=== PATIENT | male | born 1950 | race Caucasian/White ===

== ENCOUNTER 2019-10-19 16:30 | Emergency (ER) | payer MEDICARE ==
[~2019-10-19] VITALS: Ht 160 cm; Wt 90.5 kg
[~2019-10-19 16:30] MED LIST: ALLO100T PO; ASPI-57 PO; BACDS PO; CEPH-357 PO; ERGO400C PO; GARL200T PO; GINKGO PO; GLUC-133 PO; KRILL OIL PO; MULT-785 PO; NORCO10T PO; SIMV-42 PO; [UNRECOGNIZED DRUG - OTHER] PO
[2019-10-19 16:46] VITALS: BP 139/87
[2019-10-19] MEDS ORDERED: ondansetron 4mg rapidly disintigrating tab PO ONE (17:00)
[2019-10-19] MEDS ORDERED: HYDROcodone/acetaminophen 10/325mg tab PO ONE (17:00)
[2019-10-19] MEDS ORDERED: TETanus/Pertussis (Acell)/Diphther VAC/PF (Tdap-Adult) 0.5ml syringe IMVAC ONE (17:05)
[2019-10-19] MEDS ORDERED: bacitracin 15gm ointment TP ONE (17:05)
[2019-10-19] MEDS ORDERED: LIDOcaine 1% W/epiNEPHrine 1:200,000 10ml vial IJ ONE (17:05)
[2019-10-19] MEDS ORDERED: acetaminophen 325mg tablet PO ONE (17:10)
[2019-10-19] MEDS ORDERED: ceFAZolin 1gm IM kit IM ONE (17:20)
[2019-10-19] MEDS ORDERED: CEPH250T PO (18:16)
== END 2019-10-19 18:48 | disposition home or self-care (01) ==
LOC: ER 16:31
DX: S61.012A Laceration without foreign body of left thumb without damage to nail, initial encounter (principal); S62.522A Displaced fracture of distal phalanx of left thumb, initial encounter for closed fracture; Z98.890 Other specified postprocedural states; Z88.2 Allergy status to sulfonamides; Z79.82 Long term (current) use of aspirin; Z79.899 Other long term (current) drug therapy; X58.XXXA Exposure to other specified factors, initial encounter; Y93.89 Activity, other specified; Y92.89 Other specified places as the place of occurrence of the external cause; Y99.8 Other external cause status
CPT/HCPCS: 12001; 73140; 90471; 90715; 96374; 99284; J0690

== ENCOUNTER 2020-01-10 09:32 | Emergency (ER) | payer MEDICARE ==
[~2020-01-10] VITALS: Ht 170.2 cm; Wt 86.6 kg
--- NOTE | 2020-01-10 11:14 | NUR ---
DISCUSSED PT'S PAIN W/ PA ABERNATHY, SEEKING TORADOL; NO NEW ORDER RECEIVED.
[2020-01-10] MEDS ORDERED: HYDROcodone/acetaminophen 10/325mg tab PO ONE (11:25)
[2020-01-10 11:31] VITALS: BP 113/74
[2020-01-10] MEDS ORDERED: CEPH250T PO (11:43)
[2020-01-10] MEDS ORDERED: DOXY100C76 PO (11:43)
[2020-01-10] MEDS ORDERED: IBUP-1984 PO (11:43)
[2020-01-11] MEDS ORDERED: MELO-102 PO (14:55)
[2020-01-11] MEDS ORDERED: PSYL0.4C2 PO (14:59)
[2020-01-11] MEDS ORDERED: GLUC-150 PO (14:59)
[2020-01-11] MEDS ORDERED: ASPI-842 PO (14:59)
[2020-01-11] MEDS ORDERED: TUMERIC PO (14:59)
== END 2020-01-10 11:54 | disposition home or self-care (01) ==
LOC: ER 09:33
DX: L03.115 Cellulitis of right lower limb (principal); G89.29 Other chronic pain; M10.9 Gout, unspecified; Z86.73 Personal history of transient ischemic attack (TIA), and cerebral infarction without residual deficits; Z88.0 Allergy status to penicillin; Z79.82 Long term (current) use of aspirin; Z79.2 Long term (current) use of antibiotics; Z79.899 Other long term (current) drug therapy
CPT/HCPCS: 73564; 99283

== ENCOUNTER 2020-01-11 11:17 | Emergency (ER) | payer MEDICARE ==
[~2020-01-11] VITALS: Ht 160 cm; Wt 88.2 kg
[~2020-01-11 11:17] MED LIST changes: +CEPH250T PO; +DOXY100C76 PO; +IBUP-1984 PO
[2020-01-11 11:29] VITALS: BP 122/76
[2020-01-11] MEDS ORDERED: MELO-102 PO (14:55)
[2020-01-11] MEDS ORDERED: TUMERIC PO (14:59)
[2020-01-11] MEDS ORDERED: ASPI-842 PO (14:59)
[2020-01-11] MEDS ORDERED: GLUC-150 PO (14:59)
[2020-01-11] MEDS ORDERED: PSYL0.4C2 PO (14:59)
== END 2020-01-11 11:40 | disposition home or self-care (01) ==
LOC: ER 11:18
DX: L03.115 Cellulitis of right lower limb (principal); G89.29 Other chronic pain; M10.9 Gout, unspecified; Z86.73 Personal history of transient ischemic attack (TIA), and cerebral infarction without residual deficits; Z88.2 Allergy status to sulfonamides; Z79.82 Long term (current) use of aspirin; Z79.2 Long term (current) use of antibiotics; Z79.899 Other long term (current) drug therapy
CPT/HCPCS: 99281

== ENCOUNTER 2020-01-18 06:00 | Day surgery (SDC) | payer MEDICARE ==
[2020-01-11 15:18] LABS: BASOPHILS # (AUTO) 0.1 X10'3 (0-0.2); BASOPHILS % (AUTO) 0.7 % (0-1); EOSINOPHILS # (AUTO) 0.2 X10'3 (0-0.9); EOSINOPHILS % (AUTO) 1.7 % (0-6); LYMPHOCYTES # (AUTO) 0.9 X10'3 (1.1-4.8); LYMPHOCYTES % (AUTO) 9.5 % (21-51); MEAN CORPUSCULAR HEMOGLOBIN 31.6 PG (27.0-31.0); MEAN CORPUSCULAR HGB CONC 33.4 g/dL (33.0-36.5); MEAN CORPUSCULAR VOLUME 94.6 FL (78-98); MEAN PLATELET VOLUME 7.8 FL (7.4-10.4); MONOCYTES # (AUTO) 0.8 X10'3 (0-0.9); MONOCYTES % (AUTO) 8.7 % (2-12); NEUTROPHILS # (AUTO) 7.3 X10'3 (1.8-7.7); NEUTROPHILS % (AUTO) 79.4 % (42-75); PRE OP HEMATOCRIT 41.2 % (42.0-52.0); PRE OP HEMOGLOBIN 13.8 g/dL (14.0-17.9); PRE OP PLATELET COUNT 251 X10'3 (140-440); RED BLOOD COUNT 4.35 X10'6 (4.70-6.10); RED CELL DISTRIBUTION WIDTH 13.3 % (11.5-14.5)
[2020-01-11 15:31] LABS: ALBUMIN 3.5 G/DL (3.4-5.0); ALBUMIN/GLOBULIN RATIO 0.8 (1.1-1.5); ALKALINE PHOSPHATASE 65 IU/L (46-116); BLOOD UREA NITROGEN 20 MG/DL (7-18); BUN/CREATININE RATIO 18.7 (5.4-32.0); CHLORIDE 105 MMOL/L (99-107); CREATININE 1.07 MG/DL (0.60-1.10); PRE OP ALT 23 U/L (30-65); PRE OP ANION GAP 8 (8-16); PRE OP AST 14 U/L (10-37); PRE OP BILIRUB, TOTAL 0.3 MG/DL (0.0-1.0); PRE OP GLUCOSE 89 MG/DL (70-104); PRE OP SODIUM 140 MMOL/L (135-145); TOTAL CARBON DIOXIDE 27.3 MMOL/L (24-32); TOTAL PROTEIN 7.9 G/DL (6.4-8.2); eGFR 69 ML/MIN
[~2020-01-18] VITALS: Ht 160 cm; Wt 89.4 kg
[2020-01-18] VITALS (19 sets, daily range): BP systolic 92–132; BP diastolic 62–82
[~2020-01-18 06:00] MED LIST changes: -ASPI-57 PO; +ASPI-842 PO; -BACDS PO; -CEPH-357 PO; -CEPH250T PO; -DOXY100C76 PO; -GLUC-133 PO; +GLUC-150 PO; -IBUP-1984 PO; +MELO-102 PO; -NORCO10T PO; +PSYL0.4C2 PO; +TUMERIC PO; +ceFAZolin 2gm in dextrose, iso 50 ML IV ONE; +famotidine 20mg tablet PO ONE; +ringers solution, lacted 1,000 ML IV SCH
[2020-01-18] MEDS ORDERED: fentaNYL/PF 50MCG/1 ML 2ML syringe IV PRN ×2 (07:15)
[2020-01-18] MEDS ORDERED: labetalol 20mg/4ml (5mg/ml) syringe IV PRN (07:15)
[2020-01-18] MEDS ORDERED: morphine 2 MG/ML inj. syringe IV PRN (07:15)
[2020-01-18] MEDS ORDERED: ringers solution, lacted 1,000 ML IV SCH (07:15)
[2020-01-18] MEDS ORDERED: morphine 4 MG/ML inj SYRINge IV PRN (07:15)
[2020-01-18] MEDS ORDERED: hydrALAZINE 20mg/ml inj. IV PRN (07:15)
[2020-01-18] MEDS ORDERED: ondansetron/PF 4mg/2ml inj IV PRN (07:15)
[2020-01-18] MEDS ORDERED: LIDOcaine 0.5% (5mg/ml) 50ml vial ONE (07:16)
--- NOTE | 2020-01-18 09:01 | NUR ---
Received from OR via [facility], accompanied by Anesthesiologist DR WEISS and report given by Anesthesiologist. PT VERY DROWSY, NO S/S OF DISTRESS/DISCOMFORT, RIGHT HAND W/BIAS WRAP COVERING INCISION CDI. 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 Addendum: 01/18/20 at 1019 by Philomena Nesbitt RN Amended: Links added.
[2020-01-18] MEDS ORDERED: BUPIVAcaine/PF 2.5 mg/ml (0.25%) 30ml vial ONE (09:15)
[2020-01-18] MEDS ORDERED: fentaNYL/PF 50MCG/1 ML 2ML syringe ONE (09:20)
[2020-01-18] MEDS ORDERED: MIDAZolam 5mg/5ml vial ONE (09:59)
== END 2020-01-18 12:51 | disposition home or self-care (01) ==
LOC: PAS 06:00
PROVIDERS: ATTEND Orthopaedic Surgery Hand Surgery
DX: G56.01 Carpal tunnel syndrome, right upper limb (principal); M19.90 Unspecified osteoarthritis, unspecified site; M10.9 Gout, unspecified; E78.5 Hyperlipidemia, unspecified; E66.01 Morbid (severe) obesity due to excess calories; Z68.36 Body mass index [BMI] 36.0-36.9, adult; Z20.828 Contact with and (suspected) exposure to other viral communicable diseases; Z79.899 Other long term (current) drug therapy; Z98.890 Other specified postprocedural states; Z88.2 Allergy status to sulfonamides; Z72.89 Other problems related to lifestyle
CPT/HCPCS: 29848; 36415; 80053; 82948; 85025; 87635; 93005; J2001; J2250; J3010; J3490; A4215; A6449; A7000; J7120

== ENCOUNTER 2020-02-08 05:21 | Day surgery (SDC) | payer MEDICARE ==
[2020-01-28 14:53] LABS: BASOPHILS % (AUTO) 0.6 % (0-1); EOSINOPHILS # (AUTO) 0.1 X10'3 (0-0.9); EOSINOPHILS % (AUTO) 1.4 % (0-6); LYMPHOCYTES # (AUTO) 1.3 X10'3 (1.1-4.8); LYMPHOCYTES % (AUTO) 16.1 % (21-51); MEAN CORPUSCULAR HEMOGLOBIN 31.6 PG (27.0-31.0); MEAN CORPUSCULAR HGB CONC 33.9 g/dL (33.0-36.5); MEAN CORPUSCULAR VOLUME 93.1 FL (78-98); MEAN PLATELET VOLUME 8.2 FL (7.4-10.4); MONOCYTES # (AUTO) 0.7 X10'3 (0-0.9); MONOCYTES % (AUTO) 8.6 % (2-12); NEUTROPHILS # (AUTO) 5.7 X10'3 (1.8-7.7); NEUTROPHILS % (AUTO) 73.3 % (42-75); PRE OP HEMOGLOBIN 14.2 g/dL (14.0-17.9); PRE OP PLATELET COUNT 243 X10'3 (140-440); RED BLOOD COUNT 4.51 X10'6 (4.70-6.10)
[2020-01-28 15:04] LABS: ALKALINE PHOSPHATASE 66 IU/L (46-116); BLOOD UREA NITROGEN 22 MG/DL (7-18); BUN/CREATININE RATIO 12.7 (5.4-32.0); CALCIUM 9.3 MG/DL (8.5-10.1); CHLORIDE 105 MMOL/L (99-107); CREATININE 1.73 MG/DL (0.60-1.10); PRE OP ALT 33 U/L (30-65); PRE OP ANION GAP 5 (8-16); PRE OP AST 27 U/L (10-37); PRE OP BILIRUB, TOTAL 0.3 MG/DL (0.0-1.0); PRE OP GLUCOSE 95 MG/DL (70-104); PRE OP POTASSIUM 3.9 MMOL/L (3.4-5.1); PRE OP SODIUM 141 MMOL/L (135-145); TOTAL CARBON DIOXIDE 30.8 MMOL/L (24-32); TOTAL PROTEIN 7.9 G/DL (6.4-8.2); eGFR 39 ML/MIN
[~2020-02-08] VITALS: Ht 160 cm; Wt 88.8 kg
[2020-02-08] VITALS (9 sets, daily range): BP systolic 110–138; BP diastolic 70–82
[~2020-02-08 05:21] MED LIST changes: -ceFAZolin 2gm in dextrose, iso 50 ML IV ONE; -famotidine 20mg tablet PO ONE
[2020-02-08] MEDS ORDERED: ceFAZolin 2gm in dextrose, iso 50 ML IV ONE (05:30)
[2020-02-08] MEDS ORDERED: famotidine 20mg tablet PO ONE (05:30)
[2020-02-08] MEDS ORDERED: BUPIVAcaine/PF 2.5mg/ml (0.25%) 10ml vial ONE (06:37)
[2020-02-08] MEDS ORDERED: LIDOcaine 0.5% (5mg/ml) 50ml vial ONE (07:10)
[2020-02-08] MEDS ORDERED: ondansetron/PF 4mg/2ml inj IV PRN (07:15)
[2020-02-08] MEDS ORDERED: hydrALAZINE 20mg/ml inj. IV PRN (07:15)
[2020-02-08] MEDS ORDERED: morphine 4 MG/ML inj SYRINge IV PRN (07:15)
[2020-02-08] MEDS ORDERED: ringers solution, lacted 1,000 ML IV SCH (07:15)
[2020-02-08] MEDS ORDERED: morphine 2 MG/ML inj. syringe IV PRN (07:15)
[2020-02-08] MEDS ORDERED: labetalol 20mg/4ml (5mg/ml) syringe IV PRN (07:15)
[2020-02-08] MEDS ORDERED: fentaNYL/PF 50MCG/1 ML 2ML syringe IV PRN ×2 (07:15)
[2020-02-08] MEDS ORDERED: fentaNYL/PF 50MCG/1 ML 2ML syringe ONE (07:23)
[2020-02-08] MEDS ORDERED: MIDAZolam 5mg/5ml vial ONE (07:24)
[2020-02-08] MEDS ORDERED: ketorolac trometh. 30mg/ml inj. ONE (07:25)
[2020-02-08] MEDS ORDERED: flumazenil 0.1 mg/ml inj. IV ONE (07:58)
--- NOTE | 2020-02-08 08:08 | NUR ---
Received from OR via [facility] M, accompanied by Anesthesiologist DR WEISS and report given by Anesthesiologist. 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 Addendum: 02/08/20 at 0844 by Philomena Nesbitt RN Amended: Links added.
--- NOTE | 2020-02-08 09:38 | NUR ---
PT UP AND ABLE TO AMBULATE, D/C INSTRUCTIONS GIVEN AND GONE OVER W/PT WHO VERBALIZED UNDERSTANDING, PT D/CD TO HOME VIA W/C TO PRIVATE VEHICLE W/O INCIDENT. Addendum: 02/08/20 at 0948 by Philomena Nesbitt RN Amended: Links added.
== END 2020-02-08 09:38 | disposition home or self-care (01) ==
LOC: PAS 05:21
PROVIDERS: ATTEND Orthopaedic Surgery Hand Surgery
DX: G56.02 Carpal tunnel syndrome, left upper limb (principal); I10 Essential (primary) hypertension; E66.01 Morbid (severe) obesity due to excess calories; Z68.41 Body mass index [BMI] 40.0-44.9, adult; Z98.890 Other specified postprocedural states; Z72.89 Other problems related to lifestyle; Z20.828 Contact with and (suspected) exposure to other viral communicable diseases
CPT/HCPCS: 29848; 36415; 80053; 82948; 85025; 87635; J1885; J2001; J2250; J3010; J3490; A4215; A7000; J7120